=== PATIENT | female | born 1965 | race Caucasian/White ===

== ENCOUNTER 2020-04-13 19:02 | Emergency (ER) | payer BC, OTHER ==
[2020-04-13 20:15] LABS: HEMOGLOBIN 14.2 gm/dl (12.3-15.3); RED BLOOD COUNT 4.82 M/UL (4.00-5.10); WHITE BLOOD COUNT 8.3 K/UL (4.5-11.0)
[2020-04-13 20:44] LABS: BUN/CREATININE RATIO 14 (0-10)
== END 2020-04-14 00:25 | disposition short-term general hospital (02) ==
LOC: ER1 19:02
PROVIDERS: Family Medicine
DX: I63.9 Cerebral infarction, unspecified (principal); R20.2 Paresthesia of skin; R20.0 Anesthesia of skin; R29.700 NIHSS score 0; D68.59 Other primary thrombophilia; Z86.718 Personal history of other venous thrombosis and embolism; Z79.01 Long term (current) use of anticoagulants; Z88.1 Allergy status to other antibiotic agents
CPT/HCPCS: 70450; 70496; 70498; 80053; 82550; 82553; 83735; 83874; 84439; 84443; 84484; 85025; 85610; 93005; 99284; Q9967